=== PATIENT | female | born 1980 | race Hispanic/Latino ===

== ENCOUNTER 2020-03-10 14:42 | Emergency (ER) | payer SELFPAY ==
[2020-03-10] MEDS ORDERED: DERMABOND SKIN ADHESIVE TOP ONE (15:14)
[2020-03-10] MEDS ORDERED: TETANUS & DIPHTHERIA TOX,ADULT 0.5 ML VIAL ONE (15:16)
[2020-03-10] MEDS ORDERED: ACETAMINOPHEN 500 MG TAB ONE (15:20)
--- NOTE | 2020-03-10 15:43 | ER ---
Nurse's Notes [facility] Name: Emi Brock Age: 39 yrs Sex: Female : 1980 Arrival Date: 03/10/2020 Time: 14:43 Bed 23 Private MD: Diagnosis: Laceration without foreign body of other part of head-forehead Presentation: 03/10 14:51 Chief complaint: Patient states: Rushing and opened car door too fast. Hit left side of ll1 forehead. Laceration L forehead. + RODRIGUEZ since. No LOC. Coronavirus screen: Client denies travel out of the [place] in the last 14 days. At this time, the client does not indicate any symptoms associated with coronavirus-19. Ebola Screen: Patient denies travel to an Ebola-affected area in the 21 days before illness onset. Complicating Factors: There are no complicating factors for this patient. Initial Sepsis Screen: Does the patient meet any 2 criteria? No. Patient's initial sepsis screen is negative. Risk Assessment: Do you want to hurt yourself or someone else? Patient reports no desire to harm self or others. Onset of symptoms was March 10, 2020. 14:51 Method Of Arrival: Ambulatory ll1 14:51 Acuity: CATHRYN 4 ll1 15:01 Initial Sepsis Screen: Does the patient have a suspected source of infection? No. jd3 Patient's initial sepsis screen is negative. 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 - Social history:: Smoking status: Patient reports the use of cigarette tobacco products, smokes one-half pack cigarettes per day, Patient/guardian denies using alcohol, street drugs. Screenin:01 Abuse screen: Denies threats or abuse. Nutritional screening: No deficits noted. jd3 Tuberculosis screening: No symptoms or risk factors identified. Fall Risk Ambulatory Aid- None/Bed Rest/Nurse Assist (0 pts). Gait- Normal/Bed Rest/Wheelchair (0 pts) Mental Status- Oriented to own ability (0 pts). Total Mcknight Fall Scale indicates No Risk (0-24 pts). Assessment: 14:59 General: Appears in no apparent distress. uncomfortable, Behavior is calm, cooperative, jd3 appropriate for age. Pain: Complains of pain in forehead Quality of pain is described as aching, tender. Neuro: Level of Consciousness is awake, alert, obeys commands, Oriented to person, place, time, situation. Cardiovascular: Denies chest pain, Capillary refill < 3 seconds Patient's skin is warm and dry. Respiratory: Airway is patent Respiratory effort is even, unlabored, Respiratory pattern is regular, symmetrical, Denies cough, shortness of breath. GI: No signs and/or symptoms were reported involving the gastrointestinal system. : No signs and/or symptoms were reported regarding the genitourinary system. EENT: No signs and/or symptoms were reported regarding the EENT system. Derm: Skin is intact, Skin is dry, Skin is normal, Skin temperature is warm. Musculoskeletal: Circulation, motion, and sensation intact. Range of motion: intact in all extremities. Injury Description: Laceration sustained to forehead is clean, superficial, 0.5 to 2.5 cm long, not bleeding. 15:49 Reassessment: Patient appears in no apparent distress at this time. Patient and/or jd3 family updated on plan of care and expected duration. Pain level reassessed. Patient is alert, oriented x 3, equal unlabored respirations, skin warm/dry/pink. Patient states feeling better. Vital Signs: 14:51 BP 120 / 80; Pulse 73; Resp 16; Temp 98.4; Pulse Ox 100% ; Weight 81.65 kg; Height 5 ll1 ft. 3 in. (160.02 cm); Pain 5/10; 15:49 BP 103 / 77; Pulse 65; Resp 16 S; Pulse Ox 100% on R/A; jd3 14:51 Body Mass Index 31.89 (81.65 kg, 160.02 cm) ll1 ED Course: 14:43 Patient arrived in ED. as 14:53 Triage completed. ll1 14:54 Jose Carter PA is PHCP. cp 14:54 Jose Wynn MD is Attending Physician. cp 14:54 Arm band placed on. ll1 14:55 Nitish Wright RN is Primary Nurse. jd3 15:01 Patient has correct armband on for positive identification. Bed in low position. Call jd3 light in reach. Side rails up X 1. Pulse ox on. NIBP on. 15:50 No provider procedures requiring assistance completed. Patient did not have IV access jd3 during this emergency room visit. 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 Exp: jd3 09/09/2022. Lot #: [id number]. } Route: IM; Site: left deltoid; 15:50 Follow up: Response: No adverse reaction jd3 15:11 Drug: Tylenol 1000 mg Route: PO; jd3 15:50 Follow up: Response: No adverse reaction jd3 Outcome: 15:42 Discharge ordered by . vikki 15:50 Discharged to home ambulatory. jd3 15:50 Condition: stable 15:50 Discharge instructions given to patient, Instructed on discharge instructions, follow up and referral plans. Demonstrated understanding of instructions, follow-up care. 15:50 Patient left the ED. jd3 Signatures: Lisa Jones Corey, PA PA cp Davies, Jonathon, RN RN jd3 Antonia Mcnair RN RN ll1
--- NOTE | 2020-03-10 15:43 | EDPHYS ---
Physician Documentation [facility] Name: Emi Brock Age: 39 yrs Sex: Female : 1980 Arrival Date: 03/10/2020 Time: 14:43 Bed 23 Private MD: ED Physician Jose Wynn HPI: 03/10 15:02 This 39 yrs old Female presents to ER via Ambulatory with complaints of cp Laceration To Forehead. 15:02 The patient has a laceration and there are no complicating factors. The laceration(s) cp is(are) located on the forehead. Onset: The symptoms/episode began/occurred just prior to arrival. Associated signs and symptoms: Pertinent negatives: heavy bleeding, loss of consciousness, suspected foreign body. 15:02 Patient reports she struck forehead against car door causing injury. No LOC. 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 - Social history:: Smoking status: Patient reports the use of cigarette tobacco products, smokes one-half pack cigarettes per day, Patient/guardian denies using alcohol, street drugs. ROS: 15:05 Skin: Positive for laceration(s), of the forehead. cp 15:05 Constitutional: Negative for fever. cp 15:05 Eyes: Negative for photophobia. 15:05 Neck: Negative for pain with movement, pain at rest, stiffness. 15:05 Cardiovascular: Negative for chest pain. 15:05 Respiratory: Negative for cough, shortness of breath, wheezing. 15:05 Abdomen/GI: Negative for abdominal pain, nausea, vomiting. 15:05 Neuro: Positive for headache, Negative for altered mental status, loss of consciousness, weakness. 15:05 All other systems are negative. Exam: 15:10 Constitutional: The patient appears in no acute distress, alert, awake, well developed, cp well nourished. 15:10 Head/face: Noted is a laceration(s), that is superficial, 2.5 cm(s), of the left side cp of forehead, swelling, of the minimal, tenderness, that is mild. 15:10 Eyes: Periorbital structures: appear normal, Pupils: equal, round, and reactive to light and accomodation, Extraocular movements: intact throughout. 15:10 Neck: C-spine: vertebral tenderness, is not appreciated, crepitus, is not appreciated, ROM/movement: is normal, is supple, without pain, no range of motions limitations. 15:10 Chest/axilla: Inspection: normal. 15:10 Cardiovascular: Rate: normal. 15:10 Respiratory: the patient does not display signs of respiratory distress, Respirations: normal. 15:10 Neuro: Orientation: to person, place \T\ time. Mentation: is normal, Cerebellar function: is grossly normal, Motor: moves all fours, strength is normal, Sensation: is normal, Gait: is steady, at a normal pace, without difficulty. Vital Signs: 14:51 BP 120 / 80; Pulse 73; Resp 16; Temp 98.4; Pulse Ox 100% ; Weight 81.65 kg; Height 5 ll1 ft. 3 in. (160.02 cm); Pain 5/10; 15:49 BP 103 / 77; Pulse 65; Resp 16 S; Pulse Ox 100% on R/A; jd3 14:51 Body Mass Index 31.89 (81.65 kg, 160.02 cm) ll1 Laceration: 15:38 Wound Repair of 2.5cm ( 1.0in ) subcutaneous laceration to left forehead. Linear cp shaped.. Distal neuro/vascular/tendon intact. Wound prep: Simple cleansing by nurse. Skin closed with thin layer Adhesive skin closure using Dermabond. Patient tolerated well. MDM: 14:56 Patient medically screened. [email or web address] 15:15 Differential diagnosis: superficial laceration, concussion, fracture, intracranial cp bleed. 15:40 Data reviewed: vital signs, nurses notes, and as a result, I will discharge patient. cp Counseling: I had a detailed discussion with the patient and/or guardian regarding: the historical points, exam findings, and any diagnostic results supporting the discharge/admit diagnosis, to return to the emergency department if symptoms worsen or persist or if there are any questions or concerns that arise at home. Special discussion: Based on the patient's history, exam and DX evaluation, there is no indication for emergent intervention or inpatient TX. It is understood by the patient/guardian that if the SXs persist or worsen they need to return immediately for re-evaluation. 15:41 Response to treatment: the patient's symptoms have markedly improved after treatment, cp and as a result, I will discharge patient. 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 Exp: jd3 09/09/2022. Lot #: [id number]. } Route: IM; Site: left deltoid; 15:50 Follow up: Response: No adverse reaction jd3 15:11 Drug: Tylenol 1000 mg Route: PO; jd3 15:50 Follow up: Response: No adverse reaction jd3 Disposition: 16:00 Chart complete. cp Disposition: 03/10/20 15:42 Discharged to Home. Impression: Laceration without foreign body of other part of head - forehead. - Condition is Stable. - Discharge Instructions: Head Injury, Adult, Laceration Care, Adult. - Medication Reconciliation Form, Thank You Letter, Antibiotic Education, Prescription Opioid Use form. - Follow up: Emergency Department; When: As needed; Reason: Worsening of condition. - Problem is new. - Symptoms have improved. Addendum: 03/12/2020 08:55 Co-signature as Attending Physician, Jose Wynn MD I agree with the assessment and c welch plan of care. Signatures: Jose Wynn MD MD cha Page, Corey, PA PA cp Davies, Jonathon, RN RN jAntonia Mclean RN RN ll1 Corrections: (The following items were deleted from the chart) 03/10 15:50 15:42 03/10/2020 15:42 Discharged to Home. Impression: Laceration without foreign body jd3 of other part of head - forehead. Condition is Stable. Forms are Medication Reconciliation Form, Thank You Letter, Antibiotic Education, Prescription Opioid Use. Follow up: Emergency Department; When: As needed; Reason: Worsening of condition. Problem is new. Symptoms have improved. cp
[2020-03-10 16:57] VITALS: TEMP 98.4; O2SAT 100
[2020-03-10 16:58] VITALS: BP 103/77
== END 2020-03-10 15:50 | disposition home or self-care (01) ==
LOC: ER 14:42
PROC: 0JQ10ZZ Repair Face Subcutaneous Tissue and Fascia, Open Approach (ICD-10-PCS; principal; 2020-03-10)
DX: S01.81XA Laceration without foreign body of other part of head, initial encounter (principal); W22.8XXA Striking against or struck by other objects, initial encounter; Y93.9 Activity, unspecified; Y92.9 Unspecified place or not applicable; Z23 Encounter for immunization
CPT/HCPCS: 90471; 90714; 99283